=== PATIENT | male | born 2000 | race African-American/Black ===

== ENCOUNTER 2024-10-14 21:44 | Emergency (ER) | payer OTHER ==
[~2024-10-14] VITALS: Ht 188 cm; Wt 86.6 kg
[2024-10-14 22:25] VITALS: BP 133/74; TEMP 98; O2SAT 99
[2024-10-15] MEDS: LIDOCAINE /MPF 1% VIAL 5 ML VIAL IJ ONE (00:39)
[2024-10-15] MEDS ORDERED: HYDROCODONE/APAP 10/325MG TABLET ONE (01:02)
[2024-10-15] MEDS: HYDROCODONE/APAP 10/325MG TABLET PO ONE (01:04)
== END 2024-10-15 01:18 | disposition home or self-care (01) ==
LOC: ER 21:55
DX: S01.511A Laceration without foreign body of lip, initial encounter (principal); Y04.0XXA Assault by unarmed brawl or fight, initial encounter; Y93.89 Activity, other specified; Y92.89 Other specified places as the place of occurrence of the external cause; Y99.8 Other external cause status
CPT/HCPCS: 99283; 12013; A6403